=== PATIENT | female | born 1995 | race Caucasian/White ===

== ENCOUNTER 2018-09-01 00:06 | Emergency (ER) | payer BC ==
[2018-09-01] MEDS ORDERED: PROPARACAINE HCL OPTH 15ML BTL OPTH ONE (00:12)
--- NOTE | 2018-09-01 00:22 | Emergency Department Record ---
History of Present Illness - General Chief complaint: Eye Problem Stated complaint: FOREIGN BODY IN EYE Time Seen by Provider: 09/01/18 00:20 Source: Patient Mode of Arrival: Ambulatory Limitations: No limitations - History of Present Illness Initial comments: 23 yo female presents to ED for evaluation of a corneal foreign body to the right eye that has been present for approximately 30 hours. Patient reports that she was grinding metal yesterday afternoon, reports irritation to the right eye without change in vision. Patient reports that she does have an eye doctor in [place]. chief complaint: Foreign body Onset/Timin -: Days(s) Onset Description: Sudden Location: Right eye Place: Work If Injury: None Eye Symptoms: Pain Severity: Moderate Severity scale (1-10): 4 If Pain, Quality: Other Consistency: Constant Context: Injury Associated Symptoms: None Treatments Prior to Arrival: Irrigated eye - Related Data Visual acuity (L) = 20/: 20 Visual acuity (R) = 20/: 20 With correction: Yes Hx Tetanus Toxoid Vaccination: No Allergies Allergy/AdvReac Type Severity Reaction Status Date / Time No Known Drug Allergies Allergy Verified 09/01/18 00:17 Travel Screening - Travel/Exposure Within Last 30 Days Have you traveled within the last 30 days?: No - Travel/Exposure Within Last Year Have you traveled outside the [place] in the last year?: No - Additonal Travel Details Have you been exposed to anyone with a communicable illness?: No - Travel Symptoms Symptom Screening: None Review of Systems Constitutional: Denies: Chills, Fever, Malaise, Night sweats Eyes: Reports: Eye pain. Denies: Eye discharge ENT: Denies: Congestion, Ear pain, Epistaxis Respiratory: Denies: Cough, Dyspnea Cardiovascular: Denies: Chest pain, Dyspnea on exertion Endocrine: Denies: Fatigue, Heat or cold intolerance Gastrointestinal: Denies: Abdominal pain, Nausea, Vomiting Genitourinary: Denies: Incontinence, Retention Musculoskeletal: Denies: Arthralgia, Back pain Skin: Denies: Bruising, Change in color Neurological: Denies: Abnormal gait, Confusion, Headache, Seizure Psychiatric: Denies: Anxiety Hematological/Lymphatic: Denies: Anemia, Blood Clots Past Medical History - SOCIAL HISTORY Smoking Status: Never smoker Alcohol Use: Occasional Drug Use: None - RESPIRATORY Hx Respiratory Disorders: No - CARDIOVASCULAR Hx Cardio Disorders: No - NEURO Hx Neuro Disorders: No - GI Hx GI Disorders: No - Hx Genitourinary Disorders: No - ENDOCRINE Hx Endocrine Disorders: No - MUSCULOSKELETAL Hx Musculoskeletal Disorders: No - PSYCH Hx Psych Problems: Yes Hx Anxiety: Yes Hx Depression: Yes Family Medical History Any Significant Family History?: No Physical Exam - General General Appearance: Alert, Oriented x3, Cooperative, Mild distress Limitations: No limitations - Head Head exam: Atraumatic, Normocephalic, Normal inspection Head exam detail: negative: Abrasion, Contusion, Cooley's sign, General tenderness, Hematoma, Laceration - Eye Eye exam: Other. negative: Conjunctival injection, Periorbital swelling, Periorbital tenderness, Scleral icterus Visual acuity (L) = 20/: 20 Visual acuity (R) = 20/: 20 With correction: Yes Image of Eyes: 1 - Small corneal FB at the eight o'clock position 2 - Small retained FB - ENT Ear exam: negative: Auricular hematoma, Auricular trauma Nasal Exam: negative: Active bleeding, Discharge, Dried blood, Foreign body Mouth exam: negative: Drooling, Laceration, Muffled voice, Tongue elevation - Neck Neck exam: Normal inspection. negative: Meningismus, Tenderness - Respiratory Respiratory exam: Normal lung sounds bilaterally. negative: Rales, Respiratory distress, Rhonchi, Stridor - Cardiovascular Cardiovascular Exam: Regular rate, Normal rhythm, Normal heart sounds - GI/Abdominal GI/Abdominal exam: Soft. negative: Rebound, Rigid, Tenderness - Rectal Rectal exam: Deferred - exam: Deferred - Extremities Extremities exam: Normal inspection. negative: Pedal edema, Tenderness - Back Back exam: Denies: CVA tenderness (R), CVA tenderness (L) - Neurological Neurological exam: Alert, Normal gait, Oriented X3 - Psychiatric Psychiatric exam: Normal affect, Normal mood - Skin Skin exam: Normal color. negative: Abrasion Type of lesion: negative: abrasion Course Vital Signs 09/01/18 00:11 Temperature 97.8 F Pulse Rate [ 70 Pulse Ox Probe] Respiratory 20 Rate Blood Pressure 132/85 [Left Arm] Pulse Ox 100 - Reevaluation(s) Reevaluation #1: 09/01/18 00:27 Patient's examination appears c/w small corneal FB at the eight o'clock position. Following anesthesia of the right eye, moist cotton swab was used to remove approximately 50% of the FB, small amount is retained within the corneal tissue. Patient was started on Gentamicin ophthalmic drops prior to discharge, instructed to follow-up with her eye doctor Sunday morning as directed. Disposition Disposition: Discharge Clinical Impression: Corneal foreign body Qualifiers: Encounter type: initial encounter Laterality: right Qualified Code(s): T15.01XA - Foreign body in cornea, right eye, initial encounter Disposition: Home, Self-Care Condition: (2) Stable Instructions: Eye Foreign Body (ED) Additional Instructions: Return to ED if your symptoms worsen or if you have any concerns. Gentamycin as directed. Follow-up with your eye doctor Sunday as directed. Forms: Patient Portal Access Time of Disposition: 00:22 Quality - Quality Measures Quality Measures: N/A - Blood Pressure Screening Does Patient Have Any of the Following: No Blood Pressure Classification: Pre-Hypertensive BP Reading Systolic Measurement: 132 Diastolic Measurement: 85 Screening for High Blood Pressure: < Pre-Hypertensive BP, F/U Documented > [[id number]] Pre-Hypertensive Follow-up Interventions: Referral to alternative/primary care provider.
[2018-09-01] MEDS ORDERED: GENTAMICIN SULFATE 0.3% OPTH 5 ML BTL OPTH ONE (00:25)
[2018-09-01] MEDS ORDERED: GENTAMICIN SULFATE 0.3% OPTH 5 ML BTL OPTH SCH (00:30)
== END 2018-09-01 00:32 | disposition home or self-care (01) ==
LOC: ER 00:06
DX: T15.01XA Foreign body in cornea, right eye, initial encounter (principal); W31.1XXA Contact with metalworking machines, initial encounter
CPT/HCPCS: 65220; 99283